=== PATIENT | male | born 1975 | race Caucasian/White ===

== ENCOUNTER → 2019-03-24 | Outpatient (CLI) | payer BC ==
--- NOTE | 2019-03-24 15:31 | Diagnostic Imaging Report ---
EXAMINATION: MRI of the lumbar spine without contrast HISTORY: Low back pain radiating to the bilateral lower extremities, mainly on the left with numbness. COMPARISON: None. TECHNIQUE: Sagittal T1, T2, STIR; axial T2 and proton density. FINDINGS: It is assumed that there are 5 lumbar vertebrae. Curvature/Alignment: Straightening of the lumbar lordosis which may be related to muscle spasm or positional. Vertebrae: No evidence of recent fracture, infection, or neoplasm. Conus: Normal, terminating at L1 Cauda equina: Unremarkable. Lower thoracic: Unremarkable. Paraspinal soft tissues: Unremarkable. Degenerative changes: L1-L2: Unremarkable. L2-L3: Unremarkable. L3-L4: Unremarkable. L4-L5: Minimal decreased T2 signal intensity, asymmetric left disc bulge with a small 4 mm AP diameter left foraminal/extraforaminal disc protrusion which mildly narrows the left foramen without evidence of nerve root compression in the position of the examination.. L5-S1: Decreased T2 signal intensity, asymmetric left disc osteophyte and bilateral facet arthrosis. Mild left foraminal stenoses Minimal Modic type I endplate degenerative changes in the left posterolateral endplate of L5. Sacroiliac joints: Unremarkable. IMPRESSION: 1. Mild foraminal stenoses on the left at L4-L5 and L5-S1 due to degenerative changes and small disc protrusions without definite nerve root compression. 2. Mild degenerative changes of the disc at L4-5 and L5-S1 without canal stenosis. Signed by: Dr. Jane Dowell M.D. on 03/24/2019 3:28 PM
== END ==
LOC: MRI 13:51
PROVIDERS: ATTEND Specialist
DX: M54.42 Lumbago with sciatica, left side (principal)
CPT/HCPCS: 72148